=== PATIENT | female | born 1985 | race African-American/Black ===

== ENCOUNTER 2018-01-22 07:24 | Day surgery (SDC) | payer OTHER ==
[~2018-01-22] VITALS: Ht 156.2 cm; Wt 122.5 kg
[2018-01-22] MEDS ORDERED: LACTATED RINGERS 1,000 ML IV SCH (08:00)
[2018-01-22 08:19] LABS: UCG SCREEN NEGATIVE
[2018-01-22 08:21] LABS: CLARITY URINE CLOUDY (CLEAR); COLOR URINE YELLOW (YELLOW); KETONES URINE NEGATIVE (NEGATIVE); LEUKOCYTE ESTERASE URINE 3+ (NEGATIVE); NITRITE URINE NEGATIVE (NEGATIVE); OCCULT BLOOD URINE 2+ (NEGATIVE); PROTEIN URINE NEGATIVE (NEGATIVE); SPECIFIC GRAVITY URINE 1.018 (1.005-1.030)
[2018-01-22] MEDS ORDERED: RIZA10TA27 PO (08:23)
[2018-01-22 08:35] LABS: BASOPHILS % 0.5 % (0.0-2.0); EOSINOPHILS % 0.8 % (0.0-5.0); HEMATOCRIT. 40.4 % (36.0-48.0); HEMOGLOBIN. 13.3 g/dL (12.0-16.0); LYMPHOCYTES % 55.5 % (20.0-50.0); MEAN CORPUSCULAR HEMOGLOBIN 28.1 pg (28.0-32.0); MEAN CORPUSCULAR VOLUME 85.1 fL (81.0-99.0); MEAN PLATELET VOLUME 7.9 fl (7.4-10.4); MONOCYTES % 9.7 % (2.0-8.0); NEUTROPHILS % 33.5 % (40.0-76.0); PLATELET 260 x1000/uL (130-400); RED BLOOD CELL COUNT 4.75 mill/uL (4.2-5.4)
[2018-01-22 08:43] LABS: PARTIAL THROMBOPLASTIN TIME 26.4 sec (23.4-31.0); PROTHROMBIN TIME 10.8 sec (9.4-11.6)
[2018-01-22] MEDS ORDERED: ACETAMINOPHEN 325MG TABLET PO PRN (09:30)
[2018-01-22] MEDS ORDERED: FENTANYL CITRATE/PF 50MCG/ML 2ML VIAL ONE (10:05)
[2018-01-22] MEDS ORDERED: ROCURONIUM BROMIDE 10MG/ML VIAL 5ML IV ONE (10:05)
[2018-01-22] MEDS ORDERED: SUCCINYLCHOLINE CHLORIDE 200MG/10ML VIAL IV ONE (10:06)
[2018-01-22] MEDS ORDERED: CEFAZOLIN SODIUM 1000MG/VIAL ONE (10:06)
[2018-01-22] MEDS ORDERED: SODIUM CHLORIDE 0.9% 10ML VIAL ONE (10:06)
[2018-01-22] MEDS ORDERED: PROPOFOL 200MG/20ML VIAL IV ONE (10:06)
[2018-01-22] MEDS ORDERED: MIDAZOLAM HCL 2 MG/2 ML VIAL ONE (10:06)
[2018-01-22] MEDS ORDERED: ONDANSETRON HCL 4MG/2ML VIAL ONE (10:06)
[2018-01-22] MEDS ORDERED: LIDOCAINE HCL/PF 1% 10 MG/ML 5ML VIAL ONE (10:06)
[2018-01-22] MEDS ORDERED: NEOSTIGMINE METHYLSULFATE 1MG/ML 10 ML VIAL ONE (10:06)
[2018-01-22] MEDS ORDERED: GLYCOPYRROLATE 0.2 MG/ML 2ML VIAL ONE (10:06)
[2018-01-22] MEDS ORDERED: DEXAMETHASONE 4MG/ML 1ML VIAL ONE (10:24)
[2018-01-22] MEDS ORDERED: ALBUTEROL 90MCG/PUFF 17GM INHALER INH ONE (10:39)
[2018-01-22] MEDS ORDERED: SODIUM CHLORIDE 0.9% 1,000 ML IV ONE (14:25)
[2018-01-22] MEDS ORDERED: HYDROMORPHONE HCL/PF 2MG/ML CPJ IV PRN (14:30)
[2018-01-22] MEDS ORDERED: MEPERIDINE HCL/PF 25MG/ML CPJ IV PRN (14:30)
[2018-01-22] MEDS ORDERED: ONDANSETRON HCL 4MG/2ML VIAL IV PRN (14:30)
== END 2018-01-22 12:00 | disposition home or self-care (01) ==
LOC: OR 07:24
PROVIDERS: ATTEND Obstetrics & Gynecology Obstetrics
DX: N88.8 Other specified noninflammatory disorders of cervix uteri (principal); E66.09 Other obesity due to excess calories; Z68.43 Body mass index [BMI] 50.0-59.9, adult; E28.2 Polycystic ovarian syndrome; Z88.8 Allergy status to other drugs, medicaments and biological substances; Z90.710 Acquired absence of both cervix and uterus; Z79.899 Other long term (current) drug therapy; Z98.890 Other specified postprocedural states; Z82.49 Family history of ischemic heart disease and other diseases of the circulatory system; Z83.3 Family history of diabetes mellitus; Z80.3 Family history of malignant neoplasm of breast
CPT/HCPCS: 36415; 58120; 81003; 81025; 85025; 85610; 85730; 88305; A4216; J0330; J0690; J1100; J2250; J2405; J3010; J3490; J2704; J2710